=== PATIENT | male | born 1970 | race Caucasian/White ===

== ENCOUNTER 2019-11-06 15:22 | Emergency (ER) | payer BC, SELFPAY ==
[2019-11-06 15:38] VITALS: BP 154/87; PULSE 82; RESP 18; TEMP 37.3; O2SAT 99
--- NOTE | 2019-11-06 16:08 | ED.GENADULT ---
HPI - General Adult General Chief complaint: Upper Respiratory Infection Stated complaint: Sore Throat Time Seen by Provider: 11/06/19 16:08 Source: patient Mode of arrival: ambulatory Limitations: no limitations History of Present Illness HPI narrative: 49-year-old male patient presents to [facility] with complaints of sore throat, ear pain, and pressure to the left side of his face. Patient states he was seen about 4 5 days ago at a different urgent care and was swabbed for strep at that time. Patient states he never really received the results of the strep test that was told that most likely was strep and was placed on amoxicillin. Patient states he has been taking the amoxicillin as directed. Patient states that he continues to have symptoms of sore throat, ear pain and pressure to the left side of the face. Patient states he has not tried any antihistamines, sinus medications or Flonase for his symptoms. Patient denies any fevers at this time. Patient denies any coughing, chest pain or shortness of breath. Related Data Home Medications Medication Instructions Recorded Confirmed rosuvastatin mg 11/06/19 Allergies Allergy/AdvReac Type Severity Reaction Status Date / Time No Known Allergies Allergy Unverified 04/14/13 11:57 Review of Systems Review of Systems: Narrative: CONSTITUTIONAL: Denies fever, chills, or sweats. EYES: Denies visual changes, redness, or discharge. ENT: Denies rhinorrhea, positive congestion, sore throat, and otalgia. CARDIOVASCULAR: Denies chest pain, palpitations, or edema. RESPIRATORY: Denies cough or dyspnea. GASTROINTESTINAL: Denies abdominal pain, nausea, vomiting, or diarrhea. GENITOURINARY: Denies dysuria or hematuria. SKIN: Denies rash or itching. MUSCULOSKELETAL: Denies back pain, joint pain, or myalgia. NEUROLOGIC: Denies headache, numbness, or weakness. PSYCHIATRIC: Denies anxiety or depression. [facility] Past Medical History Medical History (Updated 11/06/19 @ 16:19 by ALEXEI Jaeger) Atrial fibrillation Hypertension Surgical History Surgical History (Updated 11/06/19 @ 16:09 by ALEXEI Jaeger) Hx of tonsillectomy Comments At the time of my signature I agree with nursing past medical history, surgical, social, and family history. There is no relevant family history pertinent to the presenting complaint. Exam Narrative: Exam Narrative: GENERAL: Well-appearing, well-nourished, and in no acute distress. HEAD: Normocephalic, atraumatic. No tenderness noted to frontal and maxillary sinuses on palpation EYES: PERRLA and EOMI. ENT: Nares with erythema and edema noted bilaterally, patent, no rhinorrhea or epistaxis. Mucous membranes moist. Posterior pharynx with no erythema, tonsillar margin, exudates or lesions present. There is a slight amount of fluid noted behind bilateral ears. NECK: Supple. No lymphadenopathy CHEST: Clear to auscultation. No respiratory distress. HEART: Regular rate and rhythm. No murmur heard. Normal peripheral pulses. ABDOMEN: Soft, nontender, nondistended, normal active bowel sounds. EXTREMITIES: Normal range of motion. No edema. SKIN: Warm, dry, no rash. NEURO: No focal deficits. Alert and oriented x3. Course Vital Signs Vital signs: Vital Signs Temperature 37.3 C 11/06/19 15:38 Pulse Rate 82 11/06/19 15:38 Respiratory Rate 18 11/06/19 15:38 Blood Pressure 154/87 H 11/06/19 15:38 Pulse Oximetry 99 11/06/19 15:38 Temperature 37.3 C 11/06/19 15:38 Pulse Rate 82 11/06/19 15:38 Respiratory Rate 18 11/06/19 15:38 Blood Pressure 154/87 H 11/06/19 15:38 Pulse Oximetry 99 11/06/19 15:38 Vital signs reviewed. The patient has been informed that they may have pre-hypertension or Hypertension based on a BP reading in the department. I recommend that the patient call the primary care provider listed on their discharge instructions or a physician of their choice this week to arrange follow up for fu
== END 2019-11-06 16:23 | disposition home or self-care (01) ==
PROVIDERS: Emergency Provider Nurse Practitioner Family
DX: H93.8X3 Other specified disorders of ear, bilateral (principal); J01.90 Acute sinusitis, unspecified; J02.9 Acute pharyngitis, unspecified; I48.91 Unspecified atrial fibrillation; I10 Essential (primary) hypertension
CPT/HCPCS: 99203; G0463

== ENCOUNTER 2021-05-14 12:04 | Emergency (ER) | payer BC, SELFPAY ==
[2021-05-14 12:15] VITALS: BP 151/76; PULSE 64; RESP 16; TEMP 36.3; O2SAT 99
--- NOTE | 2021-05-14 14:22 | ED.EYEPROB ---
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 Patient states she has a shorter 1 day history upon awakening pink eye, left eye gritty sensation. No photophobia, foreign body, known injury, URI?sinusitis; ocular history is remarkable for LASIK surgery years ago; patient advised to follow-up with eye doctor if not improved. H Related Data Home Medications Medication Instructions Recorded Confirmed rosuvastatin mg 11/06/19 B Complex-Vitamin B12 05/14/21 alprazolam 05/14/21 amlodipine 05/14/21 05/14/21 aspirin PO 05/14/21 Allergies Allergy/AdvReac Type Severity Reaction Status Date / Time No Known Allergies Allergy Verified 05/14/21 12:33 Review of Systems Review of Systems: General/Constitutional: No weight loss,fever Eyes: N0: Redness,discharge Ears/Nose/Throat: No: Epistaxis,ear discharge Respiratory: Denies: Hemoptysis Gastrointestinal: No Vomiting, Bleeding-rectal Skin: No Lumps, eruption Neurologic: No Focal Weakness,Sz Hematologic: Denies: Petechiae/Purpura Psychiatric: No: Suicida ideationl All Other Systems: Reviewed and Negative PMFSH Past Medical History Medical History (Updated 05/14/21 @ 14:35 by Isak Car MD) Atrial fibrillation Hypertension Surgical History Surgical History (Updated 11/06/19 @ 16:09 by ALEXEI Jaeger) Hx of tonsillectomy Comments At time of signature, agree with nursing past medical, surgical, social and family history. There is no relevant family history pertinent to the presenting complaint Exam Narrative: General Appearance: Well appearing, Well nourished, No distress EYE: VA 20/40 OD, PERRLA ,[id number] normal, EOMI ,lens normal), Normal corneas ,no fluorescein uptake, anterior chamber deep, Conjunctiva injection Ears: External ear normal, Auditory canal normal Nose: Normal nose, Nares clear Mouth/Throat: Normal appearing, Normal lips, Supple, Respiratory: Airway patent, No respiratory distress Skin: Warm, Dry Neurological: A&O x3, Normal affect Course Vital Signs Vital signs: Vital Signs Temperature 97.3 F L 05/14/21 12:15 Pulse Rate 64 05/14/21 12:15 Respiratory Rate 16 05/14/21 12:15 Blood Pressure 151/76 H 05/14/21 12:15 Pulse Oximetry 99 05/14/21 12:15 Temperature 97.3 F L 05/14/21 12:15 Pulse Rate 64 05/14/21 12:15 Respiratory Rate 16 05/14/21 12:15 Blood Pressure 151/76 H 05/14/21 12:15 Pulse Oximetry 99 05/14/21 12:15 Discharge Plan Discharge Clinical Impression: Conjunctivitis Qualifiers: Conjunctivitis type: acute Acute conjunctivitis type: unspecified Laterality: right Qualified Code(s): H10.31 - Unspecified acute conjunctivitis, right eye Patient Disposition: Home, Self-Care Condition: Stable Instructions: Conjunctivitis (ED) Additional Instructions: See eye doctor in follow-up, perhaps tuesday follow-up Prescriptions: New ofloxacin 0.3 % drops See Rx Instructions .ROUTE .COMPLEX Qty: 5 RF: 0 No Action rosuvastatin 10 mg tablet RF: 0 fluticasone propionate [Flonase Allergy Relief] 50 mcg/actuation spray,suspension 1 spray NASAL DAILY Qty: 15.8 RF: 0 amlodipine 5 mg tablet RF: 0 alprazolam 0.5 mg tablet RF: 0 B Complex-Vitamin B12 RF: 0 aspirin 81 mg Tablet PO RF: 0 Follow-up/Referrals: PHYSICIAN NOT ON STAFF,NONSTAFF [Primary Care Provider] - Stand Alone Forms: Work/School Release IP
== END 2021-05-14 14:30 | disposition home or self-care (01) ==
PROVIDERS: Emergency Provider Emergency Medicine
DX: H10.31 Unspecified acute conjunctivitis, right eye (principal); I48.91 Unspecified atrial fibrillation; I10 Essential (primary) hypertension
CPT/HCPCS: 99213; A9270; G0463